=== PATIENT | female | born 1990 | race African-American/Black ===

== ENCOUNTER 2022-06-05 15:56 | Outpatient (REF) | payer OTHER, SELFPAY ==
--- NOTE | ~2022-06-05 | CT_ITS ---
EXAMINATION: CT HEAD WITHOUT CONTRAST CLINICAL INFORMATION: Migraine COMPARISON: None TECHNIQUE: Contiguous axial imaging was performed from the skull base to vertex without intravenous administration of contrast. This CT examination was performed using dose optimization techniques as appropriate, variously including the following: *Automated exposure control *Adjustment of mA and/or kV according to patient size (this includes techniques or standardized protocols for targeted exams where dose is matched to indication/reason for exam; i.e. extremities or head) *Use of iterative reconstruction technique DLP: 1006 mGy-cm FINDINGS: There is no evidence of an extra-axial collection. There is no evidence of intra-axial or extra-axial hemorrhage. The ventricles and extra-axial CSF spaces are appropriate. Randall-white matter differentiation is normal. No mass, mass effect or infarct is seen. There is a polyp or cyst in the right maxillary sinus. Paranasal sinuses, mastoid air cells and middle ears are otherwise clear. 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 This measures 8 x 14 mm. Bony structures are otherwise unremarkable. CT/CT head/brain wo con IMPRESSION: No acute intracranial findings.
== END 2022-06-05 15:57 | disposition home or self-care (01) ==
LOC: HO.CT 15:56
PROVIDERS: PCP Internal Medicine; Visit Provider Psychiatry & Neurology Neurology
DX: G43.909 Migraine, unspecified, not intractable, without status migrainosus (principal)
CPT/HCPCS: 70450